=== PATIENT | male | born 1990 | race Caucasian/White ===

== ENCOUNTER → 2017-02-26 | Outpatient (CLI) | payer OTHER ==
[~2017-02-26] MED LIST: NCR2 MT; NICO21DI4 TD
== END | disposition home or self-care (01) ==
LOC: C.LAB 22:25
DX: Z02.83 Encounter for blood-alcohol and blood-drug test (principal)

== ENCOUNTER 2017-08-12 20:21 | Emergency (ER) | payer OTHER ==
[~2017-08-12] VITALS: Ht 188 cm; Wt 107.4 kg
[2017-08-12 20:21] VITALS: TEMP 37; Ht 188 cm; Wt 107.4 kg
[2017-08-12 20:31] VITALS: O2SAT 100
[2017-08-12 21:15] LABS: BASO % 0.1 %; BASO ABS # 0.01 K/uL (0-0.2); COMPLETE YES; EOS % 0.5 %; HEMATOCRIT 45.7 % (42-52); IG% 0.3 %; LYMPH % 10.3 %; LYMPH ABS # 1.09 K/uL (1.2-3.4); MEAN CELL VOLUME 97.6 fL (80-100); MEAN CORPUSCULAR HEMOGLOBIN 33.8 pg (25-34); MEAN CORPUSCULAR HGB CONC 34.6 g/dl (32-36); MEAN PLATELET VOLUME 9.9 fL (7.4-10.4); MONO % 7.3 %; NEUT % 81.5 %; PLATELET COUNT 192 K/uL (130-400); RED BLOOD COUNT 4.68 M/uL (4.7-6.1); WHITE BLOOD COUNT 10.63 K/uL (4.8-10.8)
[2017-08-12 21:32] LABS: CALCIUM 9.1 mg/dl (8.5-10.1); CREATININE 1.06 mg/dl (0.60-1.40); POTASSIUM 3.5 mmol/L (3.5-5.1)
[2017-08-13] VITALS: BP 132/78
[2017-08-13 00:14] VITALS: PULSE 75; O2SAT 99
--- NOTE | 2017-08-13 00:37 | EMERGENCY ROOM VISIT NOTE ---
History Report prepared by Rekha: Kerry Camejo Under the Supervision of: Dr. J Luis Dsouza M.D. First contact with patient: 20:27 Chief Complaint: OVERDOSE (ACCIDENTAL) Stated Complaint: HEROIN OVERDOSE History of Present Illness The patient is a 26 year old male who presents to the Emergency Room with an episode of heroin overdose around 1899 today. The patient presents to the ED by EMS. He and his girlfriend injected 1 bag of heroin today around 1899. His girlfriend then left and upon returning found the patient barely breathing. She called EMS. The patient's oxygen saturation was found to be in the 40s. He came to after he was given Narcan nasally. He vomited in route. He was given Zofran. He states that this was not a suicide attempt. He notes that he uses heroin once a month recreationally. He denies any thoughts of hurting himself. He is nauseous. He denies any chest pain. He feels that he is breathing normally. He denies any medical problems. Source of History: patient, nursing staff Onset: 1899 Position: other (global) Quality: other (heroin overdose) Timing: other (episodic) Modifying Factors (Relieving): other Associated Symptoms: + nausea, + vomiting, No chest pain, No SOB Review of Systems See HPI for pertinent positives & negatives. A total of 10 systems reviewed and were otherwise negative. Past Medical & Surgical Medical Problems: (1) GERD (gastroesophageal reflux disease) (2) Hepatitis (3) Obesity (4) Tobacco abuse Surgical Problems: (1) History of dental surgery Family History Patient reports no known family medical history. Social History Smoking Status: Current Every Day Smoker Marital Status: in relationship Housing Status: lives with significant other Current/Historical Medications No Active Prescriptions or Reported Meds Allergies Coded Allergies: Pertussis Vaccine (Verified Allergy, Mild, FEVER, 12/22/15) FEVER Vancomycin (Verified Adverse Reaction, Intermediate, REDMANS SYN, 12/22/15) Physical Exam Vital Signs Date Time Temp Pulse Resp B/P (MAP) Pulse Ox O2 Delivery O2 Flow Rate FiO2 08/13/17 00:14 75 16 99 08/13/17 00:00 132/78 08/12/17 23:44 66 16 97 08/12/17 23:30 113/66 08/12/17 23:14 76 15 98 08/12/17 23:09 68 18 134/68 98 08/12/17 23:00 66 18 98 08/12/17 22:11 81 20 143/75 98 Room Air 08/12/17 20:35 94 08/12/17 20:31 100 Room Air 08/12/17 20:21 37.0 103 18 152/90 98 Room Air Physical Exam Constitutional: Vital signs reviewed. Eyes: Pupils are equal round reactive to light. Conjunctiva are noninjected. ENT: Pharynx is clear without erythema or exudate. Mucous membranes are moist. Neck supple without meningeal signs. Respiratory: Clear to auscultation bilaterally. Breath sounds are equal bilaterally. No rales or wheezing. Cardiovascular: Regular rate and rhythm. No rubs or gallops. GI: Soft, nondistended and nontender. Bowel sounds are present. Musculoskeletal: No peripheral edema. No lower extremity tenderness. Integumentary: No cyanosis. Neurological: The patient is awake and alert. No focal deficits. Psychiatric: Normal affect. Medical Decision & Procedures Laboratory Results 08/12/17 20:48 Red Blood Count 4.68, Mean Corpuscular Volume 97.6, Mean Corpuscular Hemoglobin 33.8, Mean Corpuscular Hemoglobin Concent 34.6, Mean Platelet Volume 9.9, Neutrophils (%) (Auto) 81.5, Lymphocytes (%) (Auto) 10.3, Monocytes (%) (Auto) 7.3, Eosinophils (%) (Auto) 0.5, Basophils (%) (Auto) 0.1, Neutrophils # (Auto) 8.67, Lymphocytes # (Auto) 1.09, Monocytes # (Auto) 0.78, Eosinophils # (Auto) 0.05, Basophils # (Auto) 0.01 08/12/17 20:48 Test 08/12/17 20:48 White Blood Count 10.63 K/uL (4.8-10.8) Red Blood Count 4.68 M/uL (4.7-6.1) Hemoglobin 15.8 g/dL (14.0-18.0) Hematocrit 45.7 % (42-52) Mean Corpuscular Volume 97.6 fL (80-100) Mean Corpuscular Hemoglobin 33.8 pg (25-34) Mean Corpuscular Hemoglobin Concent 34.6 g/dl (32-36) Platelet Count 192 K/uL (130-400) Mean Platelet Volume 9.9 fL (7.4-10.4) Neutrophils (%) (Auto) 81.5 % Lymphocytes (%) (Auto) 10.3 % Monocytes (%) (Auto) 7.3 % Eosinophils (%) (Auto) 0.5 % Basophils (%) (Auto) 0.1 % Neutrophils # (Auto) 8.67 K/uL (1.4-6.5) Lymphocytes # (Auto) 1.09 K/uL (1.2-3.4) Monocytes # (Auto) 0.78 K/uL (0.11-0.59) Eosinophils # (Auto) 0.05 K/uL (0-0.5) Basophils # (Auto) 0.01 K/uL (0-0.2) RDW Standard Deviation 46.1 fL (36.4-46.3) RDW Coefficient of Variation 12.9 % (11.5-14.5) Immature Granulocyte % (Auto) 0.3 % Immature Granulocyte # (Auto) 0.03 K/uL (0.00-0.02) Anion Gap 8.0 mmol/L (3-11) Est Creatinine Clear Calc Drug Dose 137.9 ml/min Estimated GFR () 111.7 Estimated GFR (Non- 96.4 BUN/Creatinine Ratio 12.0 (10-20) Calcium Level 9.1 mg/dl (8.5-10.1) Total Bilirubin 0.8 mg/dl (0.2-1) Direct Bilirubin 0.3 mg/dl (0-0.2) Aspartate Amino Transf (AST/SGOT) 123 U/L (15-37) Alanine Aminotransferase (ALT/SGPT) 387 U/L (12-78) Alkaline Phosphatase 62 U/L (45-117) Total Protein 7.7 gm/dl (6.4-8.2) Albumin 3.9 gm/dl (3.4-5.0) Laboratory results as reviewed by me. ED Course 2028: The patient was evaluated in room A11B. A complete history and physical exam was performed. 2309: I reevaluated the patient. He has no complaints other than wanting the IV removed. 0025: I reevaluated the patient. He is awake and alert. He has no complaints at this time. He denies any chest pain or SOB. He is not drowsy. The welfare case worker will give him some number for rehab. I discussed deon's findings with him. He verbalized agreement of the treatment plan. He was discharged home. Medical Decision This is a 26-year-old male who presents with an unintentional heroin overdose. I did perform a limited focused review of portions of the patient's old chart on the electronic medical record. The patient has had no recent pertinent visits to this hospital. I did evaluate the patient as noted above. The patient presents with an unintentional heroin overdose. He is not suicidal. He is asymptomatic at this time. IV access was established. The patient was placed on a continuous quality assurance monitor. I did order and review the patient's blood work as noted in the electronic medical record. His LFTs are abnormal but improved since his last blood draw. I did observe the patient here for 4 hours. He remained asymptomatic and awake and alert. He was given information regarding rehabilitation and discharged with his girlfriend. Medication Reconcilliation Current Medication List: was personally reviewed by me Blood Pressure Screening Patient's blood pressure: Elevated blood pressure Blood pressure disposition: Elevated BP felt to be situational Impression Primary Impression: Heroin overdose Scribe Attestation The scribe's documentation has been prepared under my direct and personally reviewed by me in its entirety. I confirm that the note above accurately reflects all work, treatment, procedures, and medical decision making performed by me. Departure Information Dispostion Home / Self-Care Prescriptions No Active Prescriptions or Reported Meds Referrals No Doctor, Assigned (PCP) Forms HOME CARE DOCUMENTATION FORM, IMPORTANT VISIT INFORMATION, WORK / SCHOOL INSTRUCTIONS Patient Instructions ED Overdose Opiate, My [facility] Additional Instructions You have been examined and treated today on an emergency basis only. This is not a substitute for, or an effort to provide, complete comprehensive medical care. It is impossible to recognize and treat all injuries or illnesses in a single emergency department visit. It is therefore important that you follow up closely with your physician. Call as soon as possible for an appointment. Return for worsening symptoms or if you develop fever, vomiting, chest pain, shortness of breath or any other concerning symptoms. Problem Qualifiers Primary Impression: Heroin overdose Encounter type: initial encounter Injury intent: accidental or unintentional Qualified Codes: T40.1X1A - Poisoning by heroin, accidental ( unintentional), initial encounter
[2017-08-17] MEDS ORDERED: NICO21DI4 TD (08:10)
[2017-08-17] MEDS ORDERED: NCR2 MT (08:10)
== END 2017-08-13 00:30 | disposition home or self-care (01) ==
LOC: EDBD 20:21 → C.EDA 20:22
DX: T40.1X1A Poisoning by heroin, accidental (unintentional), initial encounter (principal); K21.9 Gastro-esophageal reflux disease without esophagitis; K75.9 Inflammatory liver disease, unspecified; F17.200 Nicotine dependence, unspecified, uncomplicated; Z88.1 Allergy status to other antibiotic agents; Z88.8 Allergy status to other drugs, medicaments and biological substances; Z98.890 Other specified postprocedural states

== ENCOUNTER 2017-08-13 23:53 | Inpatient (IN) | payer OTHER ==
[~2017-08-13] VITALS: Ht 188 cm; Wt 108.9 kg
[2017-08-14] VITALS (7 sets, daily range): BP systolic 135–151; BP diastolic 77–109; PULSE 77–102; TEMP 36.9; O2SAT 95; BMI 30.8
[2017-08-14 02:37] LABS: ACETAMINOPHEN < 2 ug/ml (10-30)
[2017-08-14 04:02] LABS: URINE APPEARANCE CLEAR (CLEAR); URINE BILIRUBIN NEG (NEG); URINE COLOR DK YELLOW; URINE EPITHELIAL CELL AUTO >30 /lpf (0-5); URINE NITRITE NEG (NEG); URINE PH 5.5 (4.5-7.5); URINE SPECIFIC GRAVITY 1.022 (1.000-1.030); UROBILINOGEN NEG (NEG)
[2017-08-14 04:12] LABS: MANUAL MICROSCOPIC REQUIRED? NO; REVIEW REQ? NO
[2017-08-14 04:33] LABS: BENZODIAZEPINE, URINE NEG (NEG); COCAINE,URINE NEG (NEG); PHENCYCLIDINE, URINE NEG (NEG)
--- NOTE | 2017-08-14 05:29 | EMERGENCY ROOM VISIT NOTE ---
History Report prepared by Rekha: Kerry Camejo Under the Supervision of: Dr. Shellie Florez D.O. 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 The patient presents to the ED by EMS. The patient was in the ED yesterday with a heroin overdose. He used a bag IV yesterday. Today he snorted 1 bag. He was found by his family unresponsive and barely breathing. He had not vomited. EMS found that his oxygen saturation was 88 on room air. He responded to naloxone. He complained of nausea so was given Zofran in route. The patient states that he had quit using heroin for a while and started again over the past week. He has not been to rehab before. He has been thinking about going to rehab. He had been OK throughout the day. He was not trying to hurt himself. He denies any history of suicide attempts or depression. He has not seen a psychiatrist in the past. He lives with his parents. No one else in his household uses heroin. He is currently laid off. He does smoke. Source of History: patient, EMS Onset: HEALTH INFORMATION SPECIALIST Position: other (global) Quality: other (heroin overdose) Timing: other (episodic) Modifying Factors (Relieving): other (narcan) Associated Symptoms: + nausea, + vomiting Review of Systems See HPI for pertinent positives & negatives. A total of 10 systems reviewed and were otherwise negative. Past Medical & Surgical Medical Problems: (1) GERD (gastroesophageal reflux disease) (2) Hepatitis (3) Obesity (4) Tobacco abuse Surgical Problems: (1) History of dental surgery Family History Patient reports no known family medical history. Social History Smoking Status: Current Every Day Smoker Drug Use: heroin Marital Status: in relationship Housing Status: lives with family Occupation Status: unemployed Current/Historical Medications No Active Prescriptions or Reported Meds Allergies Coded Allergies: Pertussis Vaccine (Verified Allergy, Mild, FEVER, 08/13/17) FEVER Vancomycin (Verified Adverse Reaction, Intermediate, REDMANS SYN, 08/13/17 ) Physical Exam Vital Signs Date Time Temp Pulse Resp B/P (MAP) Pulse Ox O2 Delivery O2 Flow Rate FiO2 08/14/17 06:09 72 16 106/64 99 Nasal Cannula 2.0 11/19/17 04:25 70 16 113/74 99 Nasal Cannula 2.0 08/14/17 03:15 66 08/14/17 02:38 67 16 115/81 99 Nasal Cannula 2.0 08/14/17 01:02 99 16 98/70 99 Nasal Cannula 2.0 08/14/17 00:02 104 08/13/17 23:59 36.9 108 18 127/72 95 Room Air Physical Exam General: Patient is vomiting on exam. HEENT: Head - normocephalic and atraumatic Pupils are equal, round, and reactive to light. Extraocular eye muscles are intact, and sclera are anicteric. Nose - moist nasal mucosa without discharge. Mouth - moist buccal mucosa. Oropharynx is nonerythematous and there is no tonsillar exudate or edema noted. Neck: Supple; no JVD, nuchal rigidity, cervical lymphadenopathy. Heart: Regular rate and rhythm. There is a normal S1 and S2 with no murmurs, clicks, or gallops appreciated. Lungs: Clear to auscultation bilaterally with no wheezes, rales, or rhonchi. Abdomen: Soft, completely nontender, nondistended, with good bowel sounds. There are no palpable pulsatile masses or hepatosplenomegaly. There is no guarding, rigidity, or rebound noted. Extremities: No evidence of cyanosis, clubbing, or edema. There are easily palpable peripheral pulses. Skin: warm and dry with good turgor and no rashes. Medical Decision & Procedures Laboratory Results Test 08/14/17 02:00 08/14/17 03:45 Thyroid Stimulating Hormone (TSH) 0.562 uIu/ml (0.300-4.500) Salicylates Level < 1.7 mg/dl (2.8-20) Acetaminophen Level < 2 ug/ml (10-30) Ethyl Alcohol mg/dL < 3.0 mg/dl (0-3) Urine Color DK YELLOW Urine Appearance CLEAR (CLEAR) Urine pH 5.5 (4.5-7.5) Urine Specific [place] 1.022 (1.000-1.030) Urine Protein NEG (NEG) Urine Glucose (UA) NEG (NEG) Urine Ketones 1+ (NEG) Urine Occult Blood NEG (NEG) Urine Nitrite NEG (NEG) Urine Bilirubin NEG (NEG) Urine Urobilinogen NEG (NEG) Urine Leukocyte Esterase SMALL (NEG) Urine WBC (Auto) 5-10 /hpf (0-5) Urine RBC (Auto) 0-4 /hpf (0-4) Urine Hyaline Casts (Auto) 5-10 /lpf (0-5) Urine Epithelial Cells (Auto) >30 /lpf (0-5) Urine Bacteria (Auto) NEG (NEG) Urine Opiates Screen NEG (NEG) Urine Methadone, Qualitative NEG (NEG) Urine Barbiturates NEG (NEG) Urine Phencyclidine (PCP) Level NEG (NEG) Ur Amphetamine/Methamphetamine NEG (NEG) MDMA (Ecstasy) Screen NEG (NEG) Urine Benzodiazepines Screen NEG (NEG) Urine Cocaine Metabolite NEG (NEG) Urine Marijuana (THC) POS (NEG) Laboratory results per my review. ED Course 2355: The patient was evaluated in room B7. A complete history and physical examination were performed. Nursing notes and previous electronic medical records were reviewed. 0030: I reevaluated the patient. He is sound asleep. His O2 sat is stable. 0121: The patient's sister called and notified us that she thinks this overdose was an attempt to kill himself. She talked to some of his friends who informed her that he had sent them suicidal text messages. The psych caseworker will see the patient and try to get him to agree to voluntary inpatient psychiatric care. Otherwise, his friends will be contacted to petition. 0133: The patient is willing for voluntary admission for inpatient psychiatric care. Additional laboratory studies were obtained to augment what was obtained yesterday. The patient is felt to be medically cleared at this time. 0204: Staff from [address] [place] [id number] is evaluating the patient. 0308: The patient has been referred to the [facility]. 0424: [facility] will not accept the patient. Other referrals are being made. 0630: The patient was signed out to Dr. Connors while the bed search continues. Medical Decision The patient is a 26 year old male who presents to the ED with heroin overdose. Differential diagnosis includes suicide attempt, accidental overdose, intentional overdose, heroin abuse. Labs: salicylate and Tylenol levels negative, alcohol negative, normal TSH. Urine was positive for marijuana, but not opiates. This is a 26 year old male patient with history of substance abuse presents to the emergency department after overdosing on heroin. His overdose was reversed with Narcan. Unfortunately, the patient had been here yesterday as a heroin overdose also which required reversal. The patient apparently made some suicidal threats prior to this overdose byway text message. He is willing to admit himself voluntarily for inpatient psychiatric care. A bed search continues for inpatient psychiatric bed. The case will be signed out to Dr. Connors at change of shift. Medication Reconcilliation Current Medication List: was personally reviewed by me Blood Pressure Screening Patient's blood pressure: Normal blood pressure Blood pressure disposition: Did not require urgent referral Impression Primary Impression: Suicide attempt Additional Impression: Heroin overdose Scribe Attestation The scribe's documentation has been prepared under my direction and personally reviewed by me in its entirety. I confirm that the note above accurately reflects all work, treatment, procedures, and medical decision making performed by me. Departure Information Dispostion Still a Patient Prescriptions No Active Prescriptions or Reported Meds Referrals No Doctor, Assigned (PCP) Patient Instructions My [facility] Problem Qualifiers Additional Impression: Heroin overdose Encounter type: subsequent encounter Injury intent: intentional self-harm Qualified Codes: T40.1X2D - Poisoning by heroin, intentional self-harm, subsequent encounter
[2017-08-14] MEDS ORDERED: CLONIDINE HCL 0.1 MG TAB PO PRN (11:45)
[2017-08-14] MEDS ORDERED: SODIUM CHLORIDE 0.65% NA SOLN 45 ML (OCEAN) PRN ×2 (11:45→13:15)
[2017-08-14] MEDS ORDERED: ALUMINUM/MAGNESIUM SUSP 30 ML UDC PO PRN ×2 (11:45→13:15)
[2017-08-14] MEDS ORDERED: BISMUTH SUBSALICYLATE PER ML OMNICELL CHARGE PO PRN ×2 (11:45→13:15)
[2017-08-14] MEDS ORDERED: MAGNESIUM HYDROXIDE SUSP 30 ML UDC PO PRN ×2 (11:45→13:15)
[2017-08-14] MEDS ORDERED: hydrOXYzine HCL 25 MG TAB PO PRN ×4 (11:45→13:15)
[2017-08-14] MEDS ORDERED: ACETAMINOPHEN 325 MG TAB PO PRN ×2 (11:45→13:15)
--- NOTE | 2017-08-14 12:32 | EMERGENCY ROOM VISIT NOTE ---
ED Visit Note First contact with patient: 12:31 Patient signed out to me by Dr. Florez. Patient seen and evaluated here and voluntary admission form signed. Patient be admitted to 3 S. Patient with no other issues while in the emergency department.
[2017-08-14] MEDS ORDERED: NURSING VERBAL MED ORDER ONE ×2 (13:00→13:30)
[2017-08-14] MEDS ORDERED: NICOTINE 21 MG/24 HR TDSY TD ONE (13:45)
[2017-08-14] MEDS: NICOTINE POLACRILEX 2 MG GUM MT PRN ×3 (15:10→20:58)
[2017-08-15 06:54] VITALS: BP_SYST 124; BP_SYST 128; BP_DIAS 79; BP_DIAS 84; PULSE 65; PULSE 78; TEMP 36.4; O2SAT 95
[2017-08-15 06:56] VITALS: Ht 188 cm; Wt 108.9 kg
[2017-08-15] MEDS: NICOTINE 21 MG/24 HR TDSY TD SCH (08:22)
--- NOTE | 2017-08-15 08:25 | Psychiatric History & Physical ---
History Date of Service Aug 15, 2017. Identifying Data Bryon Duran is a 26-year-old male who currently lives in [place] and is admitted on a 201 voluntary commitment after he overdosed on heroin and sent text messages to family that he was going to kill himself. Chief Complaint "I did some heroin". History of Present Illness According to records, the patient presented to the emergency room 08/13/2017 via EMS for a heroin overdose after he was found unresponsive at home. He said he had snorted one bag of heroin. He had been seen in the emergency room the day prior for a heroin overdose as well on one bag IV. Both of his overdoses required reversal with medication. His sister told emergency room staff that he had sent suicidal text messages and they suspected he was attempting to kill himself with a heroin overdose. He was willing for a voluntary admission, and stated a willingness to go to inpatient substance abuse treatment. Since admission, he has been started on the clonidine protocol for opiate withdrawal, and has had elevated blood pressure, tachycardia, and sweating. He attended groups last evening, talked about his drug use, and impulsive behavior he has had in the past. He also stated that he had been sober for about a year and a half prior to relapsing. He reported worsening mood in the context of multiple stressors, including being fired from his job a few months ago and kicked out of his parents house. He said he didn't recall sending the text messages, but later said he sent a text message saying that he wanted to . Today, the patient states he had not used heroin in over a year until Tuesday, when he relapsed because "the girl was doing it, and I was hanging out with her , didn't seem that bad at the time, now I realize it was." He was also smoking marijuana, which he does daily. He was brought into the ER and treated for overdose, then discharged. He returned home to his parents' house and "got kicked out, found the other bag I bought and snorted it, it was a bad decision. " He admits he was "texting a bunch of people, calling myself a big piece of shit and telling everyone how sorry I was." He says he remembers some of the messages he sent, but not all of them. He admits to having suicidal thoughts, " I didn't deserve to be alive." He denies any problems with mood prior to Tuesday , "I was pretty happy, chilling with a new female, it was going good." He denies neurovegitative symptoms or ever being depressed, but says he has gone through periods where he was "not happy, going through a slump." He felt more down after losing his job a few months ago. He reports worrying several times a day "that I'll fuck things up," but denies that it interferes with functioning. Denies panic, PTSD, OCD, eating disorder, alison, and psychosis. Another significant stressor is ongoing strain in relationship with the mother of his child, says she "took all my money, got my kid taken from me." They still talk, she is currently in senior care, and their son is in the custody of his maternal grandmother. The patient sees him on weekends, but hasn't seen in him in 2-3 weekends. He says he was "too busy getting fucked up" to see him recently. Past Psychiatric History Current OP Treatment: no current treatment Prior OP Treatment: no prior treatment Prior Psych Hospitalizations: none Access to a Gun: Yes (at parents' house in a safe) Suicide Attempts: No Past Medication Trials None. Additional Notes Has criminal charges for DUI and drugs, did VIET and was supposed to set up substance abuse treatment, but never did it. Is on probation, which he says he violated by using. Did complete C-SERT classes but has never had substance abuse treatment. Past Medical/Surgical History History of Concussion/Seizure: No (1) Hepatitis (2) Heroin overdose (3) Obesity (4) Tobacco abuse (5) GERD (gastroesophageal reflux disease) Allergies Allergies: Coded Allergies: Pertussis Vaccine (Verified Allergy, Mild, FEVER, 08/13/17) FEVER Vancomycin (Verified Adverse Reaction, Intermediate, REDMANS SYN, 08/13/17 ) Home Medications No Active Prescriptions or Reported Meds Family History Patient reports no known family medical history. History of Suicide: No History of Substance Abuse: Yes (brother (opiate pain meds) and sister (heroin) ) Psychiatric History: Yes (mom with unknown diagnosis, was on antidepressants in the past) Alcohol Use Alcohol Use In Past 12 Months: Yes (Halloween) AUDIT Total Score: 6 Smoking Use Smoking Status: Current Every Day Smoker (1 PPD) Substance History Says he has used "everything you can think of" in his life. alcohol - 2-4 times a month, 5-6 drinks, last use . 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 Almost had to have a liver transplant." heroin IV and intranasal - Started 6 years ago, quit for 2 years then relapsed, then quit again for over a year until relapsed last weekend. Last use Fri and Sat, 1 bag each day. marijuana daily x 12 years. opiate pain pills - last use about a week ago, uses episodically, every other day, 5-6 10mg Percocet of Vicodin daily, snorts them. Cocaine - last use 1 month or so ago meth - 2 months ago LSD - 3-4 months ago MDMA/munir - 2-3 months ago Personal History Lives in: [place] with parents x 2-3 years Childhood: older brother and sister. 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 Relationship History: never , other (strained relationship with mother of his son) Children: 6 y/o son Spiritual Affiliation: Denies Legal History: reported (multiple arrests for DUI, drug charges. Was on VIET and probation.) Psychological Trauma History: Denies Hx Traumatic Event Review of Systems 10 systems reviewed, positive for clamminess, others negative except as stated above. Examination Physical Examination A physical exam was performed in the ER prior to admission to the unit by Dr. Florez. I accept that physical as correct/medical clearance for the inpatient physical exam. Vital Signs Vital Signs Past 12 Hours Date Time Temp Pulse Resp B/P (MAP) Pulse Ox O2 Delivery O2 Flow Rate FiO2 08/15/17 06:54 36.4 78 16 124/79 (94) 95 2.0 65 128/84 (99) 08/14/17 22:36 88 144/83 (103) 08/14/17 20:59 91 16 151/103 (119) 102 142/109 (120) Mental Examination During interview pt is: alert and oriented, cooperative Appearance: appropriately dressed, appropriately groomed, other (overweight) Eye contact is: fair Motor behavior is: steady gait & station, no abnormal motor movements Speech: normal in rate, rhythm & volume Affect: other (subdued) Mood is: other ("ok") Thought process: goal directed, linear, logical Thought content: reality based without delusions Suicidal thought are: denied Homicidal thoughts are: denied Hallucinations: denies auditory, denies visual Cognition: memory grossly intact, attention grossly intact, language grossly intact Intelligence estimated to be: consistent with level of education Insight: fair Judgement: fair Impression / Recommendations Impression 26 her old single white male with a history of polysubstance dependence who presents after 2 intentional overdoses on heroin, both requiring reversal with medication, and sending suicidal text messages to friends and family. Although he admits to lower mood in the context of multiple stressors, he does not meet full criteria for clinical depression, and also has overlying polysubstance abuse which contributes to mood changes. He requires inpatient psychiatric treatment to ensure that mood and suicidality are stabilized prior to transitioning him to inpatient substance abuse treatment. Inpatient care is least restrictive and most appropriate venue at this time given the risk for by overdose if discharged prematurely without a robust safety plan in place and direct transfer to inpatient rehabilitation. Inventory Assets Strengths: willing for treatment, has young child, supportive parents Risk Factors Assessment Male: Yes : Yes /single/: Yes Higher / Fall in social status: No Access to guns: Yes Health problems: Yes Mental Health Diagnoses: No Substance use disorders: Yes Previous attempt: No Previous psychiatric stay: No Hopelessness: No Smoker: Yes Protective Factors Assessment Yazidism beliefs: No : No Responsible for young children: Yes Employed: No Stable relationships: No Supportive family: Yes Good rapport with provider: No Recommendations (1) Depression Differential includes major depressive disorder versus substance induced depression. Reviewed this with the patient, and that at this time I would not recommend an antidepressant medication, as he does not meet full criteria for clinical depression and many of his symptoms may be due to his polysubstance abuse. We discussed the symptoms of depression and that it will be important to continue to monitor these throughout the course of his treatment here and as he becomes sober. - Every 15 minute checks for safety. - Attend and participate in unit groups and therapy. - Work on healthy coping skills and the discharge safety plan (including no access to drugs or alcohol, pills, or guns). - Recommend family meeting with parents. (2) Heroin overdose Responded to Narcan, medically cleared in ED. Recommend rehab (3) Opiate abuse, continuous Educate about the risks of ongoing substance abuse and recommendations for abstinence. Refer for inpatient rehab. Continue clonidine withdrawal protocol, and may use NSAIDs or antidiarrheals as needed for withdrawal symptoms. Recommend coordination with supply officer as he states he is on probation. (4) Tobacco abuse Offer smoking cessation education and nicotine replacement with patch or gum. (5) Cannabis abuse Educate about the risks of ongoing substance abuse and recommendations for abstinence. Refer for inpatient rehab. (6) Hepatitis Due to IV drug use. Avoid hepatotoxic drugs. Will need f/u with PCP. (7) Obesity Recommend healthy diet, exercise, and weight loss. CPT Code Initial Hospital Care: 15727 Problem Qualifiers (1) Depression: Depression Type: unspecified Qualified Codes: F32.9 - Major depressive disorder, single episode, unspecified (2) Heroin overdose: Encounter type: subsequent encounter Injury intent: intentional self-harm Qualified Codes: T40.1X2D - Poisoning by heroin, intentional self-harm, subsequent encounter
[2017-08-15] MEDS: NICOTINE POLACRILEX 2 MG GUM MT PRN ×5 (08:42→20:55)
[2017-08-15 14:58] VITALS: BP 172/95; PULSE 92; TEMP 36.9
[2017-08-15 22:02] VITALS: BP 154/97; PULSE 96
[2017-08-16 06:53] VITALS: BP_SYST 119; BP_SYST 123; BP_DIAS 72; BP_DIAS 85; PULSE 67; PULSE 76; TEMP 36.4
[2017-08-16] MEDS: NICOTINE 21 MG/24 HR TDSY TD SCH (08:26)
[2017-08-16] MEDS: NICOTINE POLACRILEX 2 MG GUM MT PRN ×3 (11:44→18:28)
--- NOTE | 2017-08-16 11:59 | Psychiatric Progress Notes ---
Progress Note Date of Service Aug 16, 2017. Interval History Bryon Duran is a 26-year-old male who currently lives in [place] and is admitted on a 201 voluntary commitment after he overdosed on heroin and sent text messages to family that he was going to kill himself. Chief Complaint "Pretty good". Subjective Patient was seen & assessed interval progress reviewed with Nursing. Staff report he required significant encouragement to go to groups, and then had disrespectful and inappropriate behavior in groups, although he responded positively to feedback from peers. He is superficial in his interaction. [facility] regarding funding for inpatient rehabilitation. Today, he states his mood is "good," denies SI, and denies withdrawal symptoms. He notes he is "lucas disappointed, I let my family and my kid and myself down, remorse or whatever you call it." He talked to his sister and dad, and is planning to call his mother later today. His father told him how he found the patient after he overdosed, and "held me while I was dying." He says he will think about having a family meeting, but "it would be rough, a little emotional." Encouraged him to address these issues now with his parents, as well as for ways that he go more smoothly for moving forward. Sleep Information Total Hours of Sleep: 6.00 Meal Information Percent of Breakfast Consumed: 100 Percent of Lunch Consumed: 100 Percent of Dinner Consumed: 100 Mental Status Exam During interview pt is: alert and oriented, cooperative Appearance: appropriately dressed, appropriately groomed, other (overweight) Eye contact is: fair Motor behavior is: steady gait & station, no abnormal motor movements Speech: normal in rate, rhythm & volume Affect: other (superficial, flippant, inappropriate to content of discussion at times) Mood is: other ("good") Thought process: goal directed, linear, logical Thought content: reality based without delusions Suicidal thought are: denied Homicidal thoughts are: denied Hallucinations: denies auditory, denies visual Cognition: memory grossly intact, attention grossly intact, language grossly intact Intelligence estimated to be: consistent with level of education Insight: fair Judgement: fair Impression 26 her old single white male with a history of polysubstance dependence who presents after 2 intentional overdoses on heroin, both requiring reversal with medication, and sending suicidal text messages to friends and family. Although he admits to lower mood in the context of multiple stressors, he does not meet full criteria for clinical depression, and also has overlying polysubstance abuse which contributes to mood changes. He is denying SI here, is participating in treatment, and is appropriate for transfer to inpatient rehab as soon as a bed is secured. Ideally he would be transitioned directly to rehab to decrease the risk of relapse and suicide. Plan (1) Depression Differential includes major depressive disorder versus substance induced depression. Reviewed this with the patient, and that at this time I would not recommend an antidepressant medication, as he does not meet full criteria for clinical depression and many of his symptoms may be due to his polysubstance abuse. We discussed the symptoms of depression and that it will be important to continue to monitor these throughout the course of his treatment here and as he becomes sober. - Every 15 minute checks for safety. - Attend and participate in unit groups and therapy. - Work on healthy coping skills and the discharge safety plan (including no access to drugs or alcohol, pills, or guns). - Recommend family meeting with parents. 08/16 - Met with [facility] staff for eval/funding for inpatient rehab. - Mood stable here, denying SI, and psychiatrically stable for transfer to rehab. - Recommend family meeting with parents. (2) Heroin overdose Responded to Narcan, medically cleared in ED. Recommend rehab (3) Opiate abuse, continuous Educate about the risks of ongoing substance abuse and recommendations for abstinence. Refer for inpatient rehab. Continue clonidine withdrawal protocol, and may use NSAIDs or antidiarrheals as needed for withdrawal symptoms. Recommend coordination with dental officer as he states he is on probation. (4) Tobacco abuse Offer smoking cessation education and nicotine replacement with patch or gum. (5) Cannabis abuse Educate about the risks of ongoing substance abuse and recommendations for abstinence. Refer for inpatient rehab. (6) Hepatitis Due to IV drug use. Avoid hepatotoxic drugs. Will need f/u with PCP. (7) Obesity Recommend healthy diet, exercise, and weight loss. Discharge / Aftercare Planning Primary Care Physician: Name: Zander Alonzo Therapist: Name: n/a Feeder Catcher: Name: n/a Visit Code E&M Code: 29073 Inventory Assets Strengths: willing for treatment, has young child, supportive parents Risk Factors Assessment Male: Yes : Yes /single/: Yes Higher / Fall in social status: No Health problems: Yes Mental Health Diagnoses: No Substance use disorders: Yes Previous attempt: No Previous psychiatric stay: No Hopelessness: No Smoker: Yes Protective Factors Assessment Rastafari beliefs: No : No Responsible for young children: Yes Employed: No Stable relationships: No Supportive family: Yes Good rapport with provider: No Data Vital Signs Last 24 Hrs: Date Time Temp Pulse Resp B/P (MAP) Pulse Ox O2 Delivery O2 Flow Rate FiO2 08/16/17 06:53 36.4 67 16 119/72 (88) 76 123/85 (98) 08/15/17 22:02 96 16 154/97 (116) 08/15/17 14:58 36.9 92 18 172/95 (120) Meds Administered Last 24 Hrs: Meds Administered (Past 24Hrs) Medications (Trade) Dose Ordered Sig/Ted Route Start Time Stop Time Status Last Admin Dose Admin Nicotine (Nicoderm Cq 21MG Patch) 1 patch QAM TD 08/15/17 09:00 09/14/17 08:59 08/16/17 08:26 1 PATCH Nicotine (Nicoderm Cq 21MG Patch) 1 patch EXTRA DOSE ONCE TD 08/14/17 13:45 08/14/17 13:46 DC 08/14/17 13:56 1 PATCH Nicotine Polacrilex (Nicorette 2MG Gum) 1 piece Q2H PRN MT 08/14/17 14:00 09/13/17 13:59 08/15/17 20:55 1 PIECE Problem Qualifiers (1) Depression: Depression Type: unspecified Qualified Codes: F32.9 - Major depressive disorder, single episode, unspecified (2) Heroin overdose: Encounter type: subsequent encounter Injury intent: intentional self-harm Qualified Codes: T40.1X2D - Poisoning by heroin, intentional self-harm, subsequent encounter
[2017-08-16 14:02] VITALS: BP 127/84; PULSE 76; TEMP 36.9
[2017-08-16 22:07] VITALS: BP 144/81; PULSE 83
[2017-08-17 06:40] VITALS: BP_SYST 125; BP_SYST 127; BP_DIAS 86; BP_DIAS 87; PULSE 57; PULSE 65; TEMP 36.4
[2017-08-17] MEDS ORDERED: NCR2 MT (08:10)
[2017-08-17] MEDS ORDERED: NICO21DI4 TD (08:10)
--- NOTE | 2017-08-17 08:34 | Discharge Instructions ---
Discharge Information Report Includes Report will include the: Discharge Instructions & Summary Admission Admission Date / Time: Aug 14, 2017 at 12:45 Reason for Admission: Mood Disorder Nos Discharge Discharge Diagnosis / Problem: Substance induced depression; polysubstance abuse Condition at Discharge: Fair Discharge Goals Goal(s): Improve function, Improve disease control, Learn about illness, Therapeutic intervention Activity Recommendations Activity Limitations: per Instructions/Follow-up section . Instructions / Follow-Up Instructions / Follow-Up . SPECIAL CARE INSTRUCTIONS: 1. Follow through with your scheduled aftercare appointments. If unable to keep an appointment, please call to reschedule. 2. Take your medication only as prescribed. Medication should not be changed or stopped without the approval of your doctor. In the event of worsening symptoms or concerns about side effects, contact your doctor immediately. 3. Utilize new healthy coping skills, anger management skills, and stress management skills learned during your hospitalization. Journal feelings and process them with a support person. Identify stressors or situations that may result in relapse, deterioration or inappropriate behaviors and develop a plan to deal with those issues. 4. If your coping skills are ineffective and you are in crisis, contact your outpatient providers for direction. If unable to reach your providers, please call the CAN HELP LINE AT or go to the closest Emergency Room. 5. Avoid alcohol and un-prescribed drugs. 6. You have been provided with the Mental Health Advance Directives Pamphlet for your review. AFTERCARE APPOINTMENTS: * Please call your insurance company prior to your scheduled appointment to confirm your aftercare providers are covered. Take your insurance information to your appointments. . Discharge / Aftercare Planning Primary Care Physician: Name: [facility] Appointment Notes: As needed Therapist: Name Of Therapist: . Disaster Recovery Specialist: Name: . Other: Name of Appointment #1: [facility] Date of Appointment #1: Aug 17, 2017 . Follow-Up Care Plan for Follow-Up Care: See above. You will need referral for outpatient substance abuse treatment once you complete rehab. Current Hospital Diet Patient's current hospital diet: Regular Diet Discharge Diet Recommended Diet: Regular Diet Procedures Procedures Performed: No Pending Studies Pending Studies at Discharge: No Medical Emergencies . Who to Call and When: Medical Emergencies: For questions or emergencies related to your hospital stay, please contact the Inpatient Behavioral Health Unit at [phone]. A care clinician is on-call 18/04 for the Behavioral Health Unit for emergencies At any time you feel your situation is an emergency, you may also call 911 immediately. . Non-Emergent Contact Non-Emergency issues call your: Primary Care Provider, Psychiatrist, Therapist Past History Medical & Surgical History: (1) Heroin overdose (2) Hepatitis (3) Cannabis abuse (4) Opiate abuse, continuous (5) Obesity (6) Tobacco abuse Advance Directives Existing Advance Directive: No Do You Have an Existing Mental: No Existing Living Will: No Existing Power of Highway Engineer: No Advance Directives Info Given: To Pt/S.O. Advance Directives Reason: Declines as Mental Health Visit. Discharge Summary Admission HPI Per the Admitting provider: According to records, the patient presented to the emergency room 08/13/2017 via EMS for a heroin overdose after he was found unresponsive at home. He said he had snorted one bag of heroin. He had been seen in the emergency room the day prior for a heroin overdose as well on one bag IV. Both of his overdoses required reversal with medication. His sister told emergency room staff that he had sent suicidal text messages and they suspected he was attempting to kill himself with a heroin overdose. He was willing for a voluntary admission, and stated a willingness to go to inpatient substance abuse treatment. Since admission, he has been started on the clonidine protocol for opiate withdrawal, and has had elevated blood pressure, tachycardia, and sweating. He attended groups last evening, talked about his drug use, and impulsive behavior he has had in the past. He also stated that he had been sober for about a year and a half prior to relapsing. He reported worsening mood in the context of multiple stressors, including being fired from his job a few months ago and kicked out of his parents house. He said he didn't recall sending the text messages, but later said he sent a text message saying that he wanted to . Today, the patient states he had not used heroin in over a year until Tuesday, when he relapsed because "the girl was doing it, and I was hanging out with her , didn't seem that bad at the time, now I realize it was." He was also smoking marijuana, which he does daily. He was brought into the ER and treated for overdose, then discharged. He returned home to his parents' house and "got kicked out, found the other bag I bought and snorted it, it was a bad decision. " He admits he was "texting a bunch of people, calling myself a big piece of shit and telling everyone how sorry I was." He says he remembers some of the messages he sent, but not all of them. He admits to having suicidal thoughts, " I didn't deserve to be alive." He denies any problems with mood prior to Tuesday , "I was pretty happy, chilling with a new female, it was going good." He denies neurovegitative symptoms or ever being depressed, but says he has gone through periods where he was "not happy, going through a slump." He felt more down after losing his job a few months ago. He reports worrying several times a day "that I'll fuck things up," but denies that it interferes with functioning. Denies panic, PTSD, OCD, eating disorder, alison, and psychosis. Another significant stressor is ongoing strain in relationship with the mother of his child, says she "took all my money, got my kid taken from me." They still talk, she is currently in correction, and their son is in the custody of his maternal grandmother. The patient sees him on weekends, but hasn't seen in him in 2-3 weekends. He says he was "too busy getting fucked up" to see him recently. Admission Exam Per the Admitting provider: Please see admission H&P. Consultations None. Hospital Course (1) Depression Differential includes major depressive disorder versus substance induced depression. Reviewed this with the patient, and that at this time I would not recommend an antidepressant medication, as he does not meet full criteria for clinical depression and many of his symptoms may be due to his polysubstance abuse. We discussed the symptoms of depression and that it will be important to continue to monitor these throughout the course of his treatment here and as he becomes sober. - Every 15 minute checks for safety. - Attend and participate in unit groups and therapy. - Work on healthy coping skills and the discharge safety plan (including no access to drugs or alcohol, pills, or guns). - Recommend family meeting with parents. 08/16 - Met with [facility] staff for eval/funding for inpatient rehab. - Mood stable here, denying SI, and psychiatrically stable for transfer to rehab. - Recommend family meeting with parents. 08/17 - Accepted at [facility] and will be transferred directly there today for inpatient substance abuse treatment. - Primary diagnosis is substance use disorder and substance induced mood disorder, and recommended treatment is substance abuse treatment and sobriety. (2) Heroin overdose Responded to Narcan, medically cleared in ED. Recommend rehab (3) Opiate abuse, continuous Educate about the risks of ongoing substance abuse and recommendations for abstinence. Refer for inpatient rehab. Continue clonidine withdrawal protocol, and may use NSAIDs or antidiarrheals as needed for withdrawal symptoms. Recommend coordination with aboriginal liaison officer as he states he is on probation. (4) Tobacco abuse Offer smoking cessation education and nicotine replacement with patch or gum. (5) Cannabis abuse Educate about the risks of ongoing substance abuse and recommendations for abstinence. Refer for inpatient rehab. (6) Hepatitis Due to IV drug use. Avoid hepatotoxic drugs. Will need f/u with PCP. (7) Obesity Recommend healthy diet, exercise, and weight loss. Risk Factors Assessment Male: Yes : Yes /single/: Yes Higher / Fall in social status: No Access to guns: Yes Health problems: Yes Mental Health Diagnoses: No Substance use disorders: Yes Previous attempt: No Previous psychiatric stay: No Hopelessness: No Smoker: Yes Protective Factors Assessment Holiness beliefs: No : No Responsible for young children: Yes Employed: No Stable relationships: No Supportive family: Yes Good rapport with provider: No Absence of risk factors above: Yes (risk factors were mitigated by admission to the inpatient unit, assessing and monitoring for a mood disorder or other psychiatric condition, offering medications as needed for opiate withdrawal, education about the risks of ongoing substance abuse and the recommendations for treatment, involving his family in a family meeting, recommending that guns be secured so that he won't have access to them for safety purposes, involving him in groups and therapy on the unit, working on healthy coping skills and her discharge safety plan. The patient has been referred for inpatient substance abuse treatment and will be transported directly to rehabilitation today. He is consistently denied suicidal thoughts since admission, does not meet criteria for depression or another Outing I disorder other than substance abuse, is performing ADLs independently, and is psychiatrically stable for transfer to rehabilitation. He is no longer at acute risk of harm to himself or others.) Day of Discharge Assessment Hospital Course: The patient consistently denied suicidal thoughts throughout his hospital stay, and did not display signs or symptoms of depression. He admitted that he had been having suicidal thoughts after relapsing on heroin 2 days prior to admission, feeling that he let his family down. He admitted to significant substance abuse, including use of heroin, alcohol, cannabis, opiate pain medications, cocaine, meth, LSD, and MDMA in the past 6 months. He was frequently inappropriate and disrespectful in his language and interactions with peers, but responded to redirection. He attended and participated in groups on the unit. He was monitored for symptoms of opiate withdrawal, but did not require treatment with clonidine. He did receive a nicotine replacement therapy throughout his stay for cravings to smoke. He met with a product support sales representative from [facility] and was approved for funding for inpatient rehabilitation. He was accepted at [facility] and transported directly there from the hospital. Day of Discharge Assessment: The patient states that his mood is "okay," and admits to anxiety about going to rehabilitation, wondering what it will be like. He remains willing for inpatient substance abuse treatment, and denies current symptoms of withdrawal. He denies symptoms of depression, suicidal thoughts, and thoughts of harming others. He has a meeting with his mother this morning, and was encouraged to work on a plan to take both can agree on with respect to what he will need to do to be allowed to return home. He was also advised of recommendations that he follow up with outpatient substance abuse treatment after he completes rehabilitation, and states that he would likely attend [facility] in [place]. Well nourished, well developed WM appearing stated age. Casually dressed and adequately groomed. Calm and cooperative. Seated in NAD, with fair eye contact and no abnormal movements. Speech is normal rate, volume, and tone. Mood is "okay, a little anxious," and affect is stable and congruent. Thoughts are linear, logical and goal directed. The patient denied suicidal and homicidal ideation and was able to review his safety plan. No paranoia, delusions, or hallucinations, and did not appear to be responding to internal stimuli. Cognition was grossly intact. Alert and oriented to person, place and time. Intelligence is consistent with level of education. Insight and and judgment are fair. Laboratory Test 08/14/17 02:00 08/14/17 03:45 Thyroid Stimulating Hormone (TSH) 0.562 Salicylates Level < 1.7 Acetaminophen Level < 2 Ethyl Alcohol mg/dL < 3.0 Urine Color DK YELLOW Urine Appearance CLEAR Urine pH 5.5 Urine Specific [place] 1.022 Urine Protein NEG Urine Glucose (UA) NEG Urine Ketones 1+ Urine Occult Blood NEG Urine Nitrite NEG Urine Bilirubin NEG Urine Urobilinogen NEG Urine Leukocyte Esterase SMALL Urine WBC (Auto) 5-10 Urine RBC (Auto) 0-4 Urine Hyaline Casts (Auto) 5-10 Urine Epithelial Cells (Auto) >30 Urine Bacteria (Auto) NEG Urine Opiates Screen NEG Urine Methadone, Qualitative NEG Urine Barbiturates NEG Urine Phencyclidine (PCP) Level NEG Ur Amphetamine/Methamphetamine NEG MDMA (Ecstasy) Screen NEG Urine Benzodiazepines Screen NEG Urine Cocaine Metabolite NEG Urine Marijuana (THC) POS Urine Marijuana (THC Carboxy Acid) Pending Total Time Total Time Spent (min): Greater than 30 minutes Total Time Included: examination of the patient, discharge planning, medication reconciliation Tobacco Cessation at Discharge Smoking Status: Current Every Day Smoker (1 PPD) FDA approved Prescription: nicotine replacement product (Going to inpatient rehab for ongoing substance abuse treatment, including smoking cessation.) Problem Qualifiers (1) Depression: Depression Type: unspecified Qualified Codes: F32.9 - Major depressive disorder, single episode, unspecified (2) Heroin overdose: Encounter type: subsequent encounter Injury intent: intentional self-harm Qualified Codes: T40.1X2D - Poisoning by heroin, intentional self-harm, subsequent encounter
[2017-08-17] MEDS: NICOTINE 21 MG/24 HR TDSY TD SCH (08:40)
[2017-08-17] MEDS: NICOTINE POLACRILEX 2 MG GUM MT PRN ×2 (09:24→15:00)
[2017-08-17 12:37] VITALS: BP 125/86; PULSE 65; TEMP 36.4; O2SAT 95
[2017-08-17 15:14] VITALS: BP 154/95; PULSE 93
== END 2017-08-17 17:15 | disposition other institution (70) | DRG 897 ==
LOC: EDBD 23:53 → C.EDB 23:53 → C.MHU 08-14 12:45
PROVIDERS: ADMIT Psychiatry & Neurology Child & Adolescent Psychiatry; ATTEND Psychiatry & Neurology Psychiatry
DX: F19.94 Other psychoactive substance use, unspecified with psychoactive substance-induced mood disorder (principal); F11.14 Opioid abuse with opioid-induced mood disorder; T40.1X2A Poisoning by heroin, intentional self-harm, initial encounter; F17.200 Nicotine dependence, unspecified, uncomplicated; K21.9 Gastro-esophageal reflux disease without esophagitis; F12.10 Cannabis abuse, uncomplicated; K75.9 Inflammatory liver disease, unspecified; E66.9 Obesity, unspecified; Y92.019 Unspecified place in single-family (private) house as the place of occurrence of the external cause